=== PATIENT | male | born 2000 | race Asian ===

== ENCOUNTER 2024-03-22 20:13 | Emergency (ER) | payer OTHER, SELFPAY ==
[2024-03-22 20:16] VITALS: BP 142/84; PULSE 62; RESP 16; TEMP 37.2; O2SAT 98; BMI 29.1
--- NOTE | 2024-03-22 20:48 | ED.GENADULT ---
[facility] - General Adult General Date Seen: 03/22/24 Chief complaint: Unspecified Complaint, Adult Stated complaint: cyst on lower back Time Seen by Provider: 03/22/24 20:30 Source: patient Mode of arrival: ambulatory Limitations: no limitations History of Present Illness HPI narrative: Patient is a 24-year-old male presenting to emergency department for concerns of a cyst in his gluteal cleft. Has been having for the past few days and went to urgent care yesterday and started on amoxicillin and told to take ibuprofen states he thinks the cyst is getting bigger and the pain is getting worse but is not noticed any drainage. He was concerned about this so he came to the emergency department for re-evaluation. Denies fevers, chills, abdominal pain, diarrhea, constipation, hematochezia, melena. No other concerns noted. Related Data Allergies Allergy/AdvReac Type Severity Reaction Status Date / Time No Known Drug Allergies Allergy Verified 03/22/24 20:20 Review of Systems Narrative: Pertinent systems reviewed and were negative unless stated in HPI Exam Narrative: Exam Narrative: Const: Well-nourished, Well-developed, in mild distress Eyes: PERRL, no conjunctival injection, and symmetrical lids HENT: Atraumatic external nose and ears. Moist mucous membranes. GI: Nontender/Nondistended, No rebound or guarding. Rectum: Large pilonidal cyst on left-sided gluteal cleft MSK:Extremities w/o deformity, Normal Active ROM Skin: Warm, Dry. No rashes or lesions. Neuro: Normal Muscle tone, No focal neurological deficits. Psych: Awake, Alert, & Oriented x3. Appropriate mood and affect. Const: Vital Signs, click to edit/add: Vital Signs - 24 hr 03/22/24 20:16 Temperature 99.0 F Pulse Rate [Left P ulse Oximeter] 62 Respiratory Rate 16 Blood Pressure [Le ft Upper Arm] 142/84 H Pulse Oximetry 98 Oxygen Delivery Me thod Room Air Course Vital Signs Vital signs: Initial Vital Signs Temperature 99.0 F 03/22/24 20:16 Temperature Source Temporal Artery Scan 03/22/24 20:16 Pulse Rate 62 03/22/24 20:16 Pulse Rhythm Regular 03/22/24 20:16 Respiratory Rate 16 03/22/24 20:16 Blood Pressure 142/84 H 03/22/24 20:16 Blood Pressure Mean 103 03/22/24 20:16 Blood Pressure Position Sitting 03/22/24 20:16 Pulse Oximetry 98 03/22/24 20:16 Oxygen Delivery Method Room Air 03/22/24 20:16 Vital Signs Temperature 99.0 F 03/22/24 20:16 Pulse Rate 62 03/22/24 20:16 Respiratory Rate 16 03/22/24 20:16 Blood Pressure 142/84 H 03/22/24 20:16 Pulse Oximetry 98 03/22/24 20:16 Oxygen Delivery Method Room Air 03/22/24 20:16 Temperature 99.0 F 03/22/24 20:16 Pulse Rate 62 03/22/24 20:16 Respiratory Rate 16 03/22/24 20:16 Blood Pressure 142/84 H 03/22/24 20:16 Pulse Oximetry 98 03/22/24 20:16 Oxygen Delivery Method Room Air 03/22/24 20:16 Medical Decision Making MDM Narrative Medical decision making narrative: Patient is at 24 old male presenting for a pilonidal cyst. I used bedside ultrasound and it shows a large cyst which I will drain at the bedside. See procedure note. Was able to get a large amount of purulent material out. He tolerated the procedure well. I will start him on Bactrim. He is agreeable to this plan. Discharge Plan Discharge Clinical Impression: Pilonidal cyst Patient Disposition: Home, Self-Care Condition: Stable Instructions: Pilonidal Cyst (ED) Additional Instructions: Go home and take Sitz baths. Continue take amoxicillin an add the Bactrim. There is a 40% chance this will we occur in if it does you will need to see a surgeon. Return to emergency department for any new or worsening symptoms. Stand Alone Forms: [facility] Info Instructions Procedures I/D Type: pilonidal cyst Name of person performing procedure: Hussein Carter Anesthesia I&D: lidocaine 1% Amount of anesthesia used (mls): 3 Side (if applicable): left Technique: incised with #11 blade Packing used?: none Estimated blood loss (if any): none Complications: pain Conclusion: patient tolerated procedure
== END 2024-03-22 21:08 | disposition home or self-care (01) ==
LOC: ED 20:57
PROVIDERS: Emergency Provider Student in an Organized Health Care Education/Training Program
DX: L05.01 Pilonidal cyst with abscess (principal)
CPT/HCPCS: 10080; 10060; 99282; 99283